=== PATIENT | female | born 1995 | race Caucasian/White ===

== ENCOUNTER 2017-01-10 12:45 | Emergency (ER) | payer MEDICAID, OTHER ==
[~2017-01-10] VITALS: Ht 152.4 cm; Wt 55.6 kg
[~2017-01-10 12:45] MED LIST: ACET-2047 PO; ALBU8.5H5 INH; AMOX1TAB10 PO; AZIT250T94 PO; IBUP-1542 PO; TRAM50TA2 PO
[2017-01-10 12:46] VITALS: Ht 152.4 cm; Wt 55.6 kg
--- NOTE | 2017-01-10 15:38 | ERD ---
ER Documentation Chief Complaint Date/Time DATE: 01/10/17 TIME: 15:32 Chief Complaint lmp 12/18/16 vaginal spotting HPI This 21-year-old female here for vaginal bleeding. The patient states that her normal menstrual cycle was December 18 of this year and then she took the Plan B control pills last week and is subsequently having some vaginal spotting for 3 days and is gradually increasing flow to a moderate heavy flow. The patient is soaking 1 pad every 4 hours. She has no pelvic cramps no dizziness syncope. No dysuria no back pain ROS All systems reviewed and are negative except as per history of present illness. Medications Home Meds Active Scripts Amoxicillin/Potassium Clav (Amox-Clav 875-125 mg Tablet) 875-125 mg Tab, 1 TAB PO BID for 7 Days, #14 TAB Prov:CLAUDETTE BAEZA PA-C 08/01/16 Tramadol HCl (Tramadol HCl) 50 Mg Tab, 50 MG PO Q6H Y for PAIN for 18 Days, TAB Prov:ZEYAD ASCENCIO MD 08/14/15 Ibuprofen* (Motrin*) 600 Mg Tab, 600 MG PO Q6, #20 TAB Prov:ZEYAD ASCENCIO MD 08/14/15 Albuterol Sulfate* (Albuterol Sulfate* HFA) 8.5 Gm Hfa.aer.ad, 1-2 PUFF INH Q4 Y for SHORTNESS OF BREATH, #1 EA Prov:CHO,SKYLAR 06/01/15 Acetaminophen* (Acetaminophen*) 650 Mg Tablet, 650 MG PO Q4H Y for PAIN AND OR ELEVATED TEMP, #15 TAB Prov:CHO,SKYLAR 06/01/15 Ibuprofen* (Motrin*) 600 Mg Tab, 600 MG PO Q6, #15 TAB Prov:CHO,SKYLAR 06/01/15 Azithromycin* (Zithromax*) 250 Mg Tablet, 250 MG PO .RosePACK DIRECTED, #6 TAB TAKE 500 MG (2 TABS) THE FIRST DAY THEN 250 MG (1 TAB) DAYS 2-5 Prov:CHO,SKYLAR 06/01/15 Allergies Allergies: Coded Allergies: No Known Allergy (Unverified , 01/10/17) PMhx/Soc Medical and Surgical Hx: pt denies Medical Hx, pt denies Surgical Hx Hx Alcohol Use: No Hx Substance Use: No Hx Tobacco Use: No Smoking Status: Never smoker FmHx Family History: No coronary disease Physical Exam Vitals Vital Signs Date Time Temp Pulse Resp B/P Pulse Ox O2 Delivery O2 Flow Rate FiO2 01/10/17 12:46 98.1 95 20 142/79 99 Physical Exam Const: Well-developed, well-nourished Head: Atraumatic, normocephalic Eyes: Normal Conjunctiva, PERRLA, EOMI, normal sclera, no nystagmus ENT: Normal External Ears, Nose and Mouth, moist mucus membranes. Neck: Full range of motion. No meningismus, no lymphadenopathy. Resp: Clear to auscultation bilaterally, no wheezing, rhonchi, rales Cardio: Regular rate and rhythm, no murmurs, S1 S2 present Abd: Soft, non tender x 4, non distended. Normal bowel sounds, no guarding or rebound, no pulsitile abdominal masses or bruits Skin: No petechiae or rashes, no ecchymosis , no maculopapular rash Back: No midline or flank tenderness Ext: No cyanosis, or edema, FROM x 4, normal inspection, neurovascularly intact x 4 Neur: Awake and alert, STR 5/5 x 4, sensation intact x 4, no focal findings, cerebellum intact Psych: Normal Mood and Affect Procedures/MDM Negative test Patient is having some hormonal fluctuations causing the bleeding which can be expected after taking Plan B control Departure Diagnosis: Primary Impression: Vaginal bleeding Condition: Stable Patient Instructions: Dysfunctional Uterine Bleeding Referrals: DOCTOR,NOT ON STAFF (PCP) NICOLETTE PAINTER DO Jan 10, 2017 15:38
== END 2017-01-10 15:50 | disposition home or self-care (01) ==
LOC: FTE 12:45
DX: N93.9 Abnormal uterine and vaginal bleeding, unspecified (principal)
CPT/HCPCS: 99282